=== PATIENT | male | born 1995 | race Two or more races ===

== ENCOUNTER 2019-12-27 04:49 | Emergency (ER) | payer OTHER ==
[~2019-12-27] VITALS: Ht 177.8 cm; Wt 90.7 kg
[2019-12-27] MEDS ORDERED: ZYRTEC10 M3 (04:55)
[2019-12-27] MEDS ORDERED: SINGULAIR 10MG10 MG (04:55)
== END 2019-12-27 05:47 | disposition home or self-care (01) ==
LOC: ER 04:49
DX: R12 Heartburn (principal); R07.89 Other chest pain